=== PATIENT | female | born 1955 | race Caucasian/White ===

== ENCOUNTER 2016-05-07 07:24 | Inpatient (IN) | payer BC ==
[2016-04-05 11:34] VITALS: BMI 34.0
--- NOTE | 2016-04-05 12:12 | PAT Medication Instructions ---
Service Date Apr 05, 2016. Current Home Medication List Alendronate/Cholecalciferol (Fosamax+D 70MG/2800 Iu), 1 TABLET PO WK Ascorbic Acid (Vitamin C), 500 MG PO QAM Cholecalciferol (Vitamin D3), 1 CAP PO QAM Cyanocobalamin (Vitamin B12 500MCG), 1,000 MCG PO WEEKLY Diazepam (Valium), 5 MG PO HS Diltiazem Hcl Ext Rel (Tiazac), 240 MG PO QAM Folic Acid (Folvite), 1 MG PO QAM Methotrexate (Methotrexate), 2.5 MG PO WEEKLY PRN for 7.5 Pantoprazole (Protonix), 40 MG PO QAM Prednisone Tab (Prednisone), 10 MG PO QAM Rivaroxaban (Xarelto), 1 TAB PO QAM Tramadol/Acetaminophen (Ultracet), 1 TAB PO Q4-6H [Muscle Relaxant], 1 TAB PO HS Medication Instructions For Your Scheduled Surgery - Continue as directed: Alendronate/Cholecalciferol (Fosamax+D 70MG/2800 Iu), 1 TABLET PO WK Cyanocobalamin (Vitamin B12 500MCG), 1,000 MCG PO WEEKLY - Hold the following medications 2 weeks prior to surgery: Methotrexate (Methotrexate), 2.5 MG PO WEEKLY - Hold the following medications 3 days prior to surgery per Cardiology recommendations: Rivaroxaban (Xarelto), 1 TAB PO QAM - Hold the following medications the morning of surgery: Ascorbic Acid (Vitamin C), 500 MG PO QAM Cholecalciferol (Vitamin D3), 1 CAP PO QAM Folic Acid (Folvite), 1 MG PO QAM - Take the following medications the morning of surgery with a sip of water OTHERWISE NOTHING TO EAT OR DRINK AFTER MIDNIGHT: Pantoprazole (Protonix), 40 MG PO QAM Prednisone Tab (Prednisone), 10 MG PO QAM Diltiazem Hcl Ext Rel (Tiazac), 240 MG PO QAM Tramadol/Acetaminophen (Ultracet), 1 TAB PO Q4-6H (may take if needed up to 4 hours prior to surgery) - Take the following medications as scheduled the night before surgery: Diazepam (Valium), 5 MG PO HS [Muscle Relaxant], 1 TAB PO HS Tramadol/Acetaminophen (Ultracet), 1 TAB PO Q4-6H If you have any questions please call us at [phone] or [phone] or [phone]
--- NOTE | 2016-04-05 12:45 | DIAGNOSTIC IMAGING REPORT ---
CHEST 2 VIEWS ROUTINE CLINICAL HISTORY: pat preoperative evaluation COMPARISON STUDY: No previous studies for comparison. FINDINGS: The bones soft tissues and hemidiaphragms are normal. The cardiomediastinal silhouette is normal. The lungs are clear. The pulmonary vasculature is normal. IMPRESSION: Negative chest. Electronically signed by: Sridhar Kiser M.D. 04/05/2016 12:43 PM Dictated Date/Time: 04/05/2016 12:42 PM
[2016-04-05 12:56] LABS: URINE APPEARANCE CLEAR (CLEAR); URINE BILIRUBIN NEG (NEG); URINE COLOR YELLOW; URINE NITRITE NEG (NEG); URINE PH 5.5 (4.5-7.5); URINE SPECIFIC GRAVITY 1.013 (1.000-1.030); UROBILINOGEN NEG (NEG); ZZUR CULT IF INDIC CLEAN CATCH NO
[2016-04-05 13:01] LABS: INR 1.5 (0.9-1.1); PARTIAL THROMBOPLASTIN RATIO 1.6; PROTHROMBIN TIME (PATIENT) 16.8 SECONDS (9.0-12.0)
[2016-04-05 13:10] LABS: BUN/CREATININE RATIO 23.2 (10-20); CALCIUM 8.5 mg/dl (8.5-10.1); CREATININE 0.63 mg/dl (0.60-1.20); POTASSIUM 3.8 mmol/L (3.5-5.1)
[2016-04-05 13:13] LABS: MANUAL MICROSCOPIC REQUIRED? NO; REVIEW REQ? NO
--- NOTE | 2016-05-06 14:53 | HISTORY & PHYSICAL EXAMINATION ---
DATE OF ADMISSION: 05/07/2016 CHIEF COMPLAINT: Left knee pain. HISTORY OF PRESENT ILLNESS: Kary is a 60-year-old female with a multiple-year history of pain in her left knee. The patient states over the last 6 weeks has been worse. She rates her pain a 10/10. She has pain with her daily activities. She has limited standing and walking tolerance. Pain is worse with weightbearing. The patient has been ambulating with a cane. She takes Tylenol and tramadol without relief. She is on chronic prednisone. She has failed conservative treatment and is scheduled for left knee replacement. PAST MEDICAL HISTORY: Hypercholesterolemia, rheumatoid arthritis, atrial fibrillation, obesity. She denies heart disease, diabetes or DVT. PAST SURGICAL HISTORY: Right total knee, hysterectomy and gastric bypass surgery. SOCIAL HISTORY: The patient denies alcohol or tobacco use. She lives in a 2-story home. She is and is doing deskwork. FAMILY HISTORY: Negative for DVT. MEDICATIONS: Vitamin B12 1000 mcg daily, vitamin D 2000 units, diltiazem ER 240 mg, Xarelto 10 mg, methotrexate 2.5 mg, prednisone 10 mg, diazepam 5 mg, alendronate 70 mg, folic acid 1 mg. ALLERGIES: BACTRIM. REVIEW OF SYSTEMS: See HPI. Ten other systems reviewed, all negative. PHYSICAL EXAMINATION: VITAL SIGNS: Height 5 foot 7, weight 217 pounds, BMI 34. GENERAL: This is a well-developed, well-nourished female who is alert and oriented x3. Mood and affect are appropriate. HEAD, EYES, EARS, NOSE, AND THROAT: Normocephalic, atraumatic. Mucous membranes are moist and intact. NECK: Supple without lymphadenopathy. HEART: Regular rate and rhythm without murmurs, rubs or gallops. LUNGS: Clear to auscultation without wheezes or rhonchi. ABDOMEN: Soft and nontender. Bowel sounds are equal and active. EXTREMITIES: No ecchymosis, redness or warmth. Thigh and calf are soft and nontender. She has neutral alignment. Range of motion is from 0-100 degrees with +1 medial laxity. She is neurovascularly intact with +5/5 strength. X-RAY EXAMINATION: AP and lateral views show joint space narrowing and osteophyte formation. IMPRESSION: Degenerative joint disease left knee. PLAN: The patient will be admitted for a left total knee arthroplasty. She is on chronic Xarelto for Afib and will resume the postoperatively. A And P Technician is Dr. Brown in [facility] and she will be doing [facility] for physical therapy.
[~2016-05-07] VITALS: Ht 170.2 cm; Wt 98.9 kg
[2016-05-07] VITALS (8 sets, daily range): BP systolic 119–196; BP diastolic 68–98; PULSE 45–60; TEMP 36.4–36.6; O2SAT 95–100; Ht 170.2 cm; Wt 98.9 kg
[2016-05-07] MEDS: TRANEXAMIC ACID INJ 1,000 MG in SODIUM CHLORIDE 0.9% 100ML 100 ML IV SCH ×2 (06:30→09:59)
[~2016-05-07 07:24] MED LIST: ACETAMINOPHEN 500 MG TAB PO SCH; ASCO1CAP3 PO; BUPIVACAINE 0.25% 30 ML VIAL ONE; BUPIVACAINE 0.5 % 5 MG/1 ML PF 10ML VIAL ONE; CEFAZOLIN 2000 MG/60 ML D5W 60 ML IV SCH; CHOL2000 PO; CYAN500T13 PO; DEXAMETHASONE 4 MG TAB PO SCH; DIAZ-165 PO; DILT-115 PO; FAMOTIDINE 20 MG TAB PO SCH; FOLI1TAB7 PO; FSMD/70 PO; GABAPENTIN 300 MG CAP PO SCH; HYDROCORTISONE IV 100 MG in SYRINGE 0 ML IV SCH; LACTATED RINGER'S 1000ML 1,000 ML IV SCH; LACTATED RINGER'S 1000ML 500 ML IV ONE; LACTATED RINGER'S 1000ML IV SCH; METH2.5T PO; METOCLOPRAMIDE HCL 10 MG TAB PO SCH; MUSCLE RELAXANT PO; OXYCODONE HCL 10 MG TABCR (OXYCONTIN) PO SCH; PANT40TA PO; POLYMYXIN B SULFATE 100,000 UNITS in NSS 100ML IR SCH; PRED10TA PO; ROPIVACAINE 5MG/ML 30 ML 150 MG, BUPIVACAINE/EPINEPHR 0.5% MPF 30 ML, KETOROLAC TROMETH... INFIL SCH; TRAMTAB5 PO; TRANEXAMIC ACID INJ 1,000 MG in SODIUM CHLORIDE 0.9% 100ML 100 ML IV SCH; VANCOMYCIN INJ 400 MG in NSS 100ML IR SCH; XRL10 PO
[2016-05-07] MEDS ORDERED: ONDANSETRON INJ 2 MG/ML 2 ML VIAL IV PRN ×2 (07:45→11:45)
[2016-05-07] MEDS ORDERED: EpHEDrine SULFATE INJ 50 MG/ML AMP IV PRN (07:45)
[2016-05-07] MEDS ORDERED: ATROPINE SULFATE 0.1 MG/ML 5ML SYR IV PRN (07:45)
[2016-05-07] MEDS ORDERED: PROPOFOL IV EMULSION 10 MG/ML 20 ML VIAL IV ONE ×3 (07:57→11:11)
[2016-05-07] MEDS ORDERED: FENTANYL CITRATE INJ 50 MCG/1 ML 2 ML VIAL ONE (07:58)
[2016-05-07] MEDS ORDERED: MIDAZOLAM HCL 1 MG/ML 2ML VIAL ONE (07:58)
--- NOTE | 2016-05-07 08:42 | History & Physical Bridge Note ---
H&P Re-Evaluation Bridge Note: I have examined the patient, reviewed the History & Physical and in the interval since the performance of the History & Physical I have noted the following changes of clinical significance: No changes noted
[2016-05-07] MEDS ORDERED: BUPIVACAINE/EPINEPHRINE 0.25% 1:200,000 30 ML VIAL ONE (09:24)
[2016-05-07] MEDS ORDERED: ORTHO JOINT ANESTHETIC ONE (09:24)
[2016-05-07] MEDS ORDERED: BACITRACIN 50000 UNIT VIAL ONE (09:25)
[2016-05-07] MEDS ORDERED: POVIDONE-IODINE OP SOLN 30 ML BTL ONE (09:25)
[2016-05-07 09:52] LABS: INR 1.1 (0.9-1.1); PARTIAL THROMBOPLASTIN RATIO 1.2
--- NOTE | 2016-05-07 11:32 | [facility] Post Operative Brief Note ---
Immediate Operative Summary Operative Date May 07, 2016. Pre-Operative Diagnosis Left Knee Degenerative Joint Disease Post-Operative Diagnosis Left Knee Degenerative Joint Disease Procedure(s) Performed Left Total Knee Arthroplasty Surgeon Dr. Mahin Lewis Yarn Mercerizer Operator Surgeon(s) Teresa Cee PA-C Estimated Blood Loss 75mL Findings SEVEREB DISEASE POOR TISSUE Specimens Specimen A. Left knee bone and tissue Complication(s) None Disposition Recovery Room / PACU
[2016-05-07] MEDS ORDERED: SOD PHOSPHATE/SOD BIPHOSPHATE ENEMA 132 ML BTL PR PRN (11:45)
[2016-05-07] MEDS ORDERED: TRAMADOL HCL 50 MG TAB PO PRN (11:45)
[2016-05-07] MEDS ORDERED: METOCLOPRAMIDE HCL INJ 5 MG/ML 2 ML VIAL IV PRN (11:45)
[2016-05-07] MEDS ORDERED: ZOLPIDEM TARTRATE 5 MG TAB PO PRN (11:45)
[2016-05-07] MEDS ORDERED: MoRPHine SULFATE 2 MG/ML CARP IV PRN (11:45)
[2016-05-07] MEDS ORDERED: BISACODYL 10 MG SUPP PR PRN (11:45)
[2016-05-07] MEDS ORDERED: DiphenhydrAMINE HCL 50 MG/ML VIAL IV PRN (11:45)
[2016-05-07] MEDS ORDERED: ALUMINUM/MAGNESIUM/SIMETH (MAALOX MAX) 30 ML UDC PO PRN (11:45)
[2016-05-07] MEDS ORDERED: MAGNESIUM HYDROXIDE SUSP 30 ML UDC PO PRN (11:45)
--- NOTE | 2016-05-07 12:24 | DIAGNOSTIC IMAGING REPORT ---
LEFT KNEE 1 OR 2 VIEWS ROUTINE CLINICAL HISTORY: Degenerative arthritis COMPARISON: None. DISCUSSION: There are postsurgical changes of a total left knee arthroplasty and patellar resurfacing. The femoral and tibial components appear well seated. Overlying surgical drains are evident. There is air within the soft tissues consistent with history of recent surgery. IMPRESSION: Postsurgical changes of a total left knee arthroplasty. Electronically signed by: Charly Polo M.D. 05/07/2016 12:23 PM Dictated Date/Time: 05/07/2016 12:22 PM
--- NOTE | 2016-05-07 12:56 | [facility] Post Operative Brief Note ---
Immediate Operative Summary Operative Date May 07, 2016. Pre-Operative Diagnosis Left Knee Degenerative Joint Disease Post-Operative Diagnosis Left Knee Degenerative Joint Disease Procedure(s) Performed Left Total Knee Arthroplasty Surgeon Dr. Mahin Lewis Guest Service Aide Surgeon(s) Teresa Cee PA-C Estimated Blood Loss 75mL Specimens Specimen A. Left knee bone and tissue Complication(s) None Disposition Recovery Room / PACU
--- NOTE | 2016-05-07 13:03 | Anesthesiology Progress Note ---
Anesthesia Post Op Note Date & Time May 07, 2016 at 13:04 Vital Signs Pain Intensity: 0 Vital Signs Past 12 Hours Date Time Temp Pulse Resp B/P Pulse Ox O2 Delivery O2 Flow Rate FiO2 05/07/16 13:00 51 16 129/62 99 Nasal Cannula 2 05/07/16 12:50 36.9 55 15 129/62 100 Nasal Cannula 2 05/07/16 12:40 48 13 117/58 99 Nasal Cannula 2 05/07/16 12:30 55 14 120/58 98 Nasal Cannula 2 05/07/16 12:20 51 12 121/61 100 Mask 10 05/07/16 12:10 52 10 119/56 100 Mask 10 05/07/16 12:04 36.3 58 14 116/52 96 Mask 10 05/07/16 07:50 36.4 54 16 196/98 98 Room Air Notes Mental Status: alert / awake / arousable, participated in evaluation Pt Amnestic to Procedure: Yes Nausea / Vomiting: adequately controlled Pain: adequately controlled Airway Patency, RR, SpO2: stable & adequate BP & HR: stable & adequate Hydration State: stable & adequate Neuraxial Anesthesia: was administered, sensory block is resolving Anesthetic Complications: no major complications apparent
--- NOTE | 2016-05-07 15:51 | OPERATIVE REPORT ---
DATE OF OPERATION: 05/07/2016 PREOPERATIVE DIAGNOSIS: Degenerative arthritis, left knee. POSTOPERATIVE DIAGNOSIS: Same. PROCEDURE: Left total knee patient matched implant. SURGEON: Mahin Lewis MD ELECTRODYNAMICIST: ONEIDA Prasad ANESTHESIA: Spinal. BLOOD LOSS: 75 mL. REPLACEMENT FLUIDS: 1500 mL crystalloid. DRAINS: Hemovac x2. CULTURES: None. COMPLICATIONS: None. COMPONENTS USED: [employer] [place] Knee System: Femur size 5, tibia size 5 x 9, and patella size 32. NOTE: ONEIDA Prasad was present and assisted throughout due to the complicated nature of this case. She helped with preparation and set up. She first assisted throughout and personally closed the capsule, subcutaneous and skin layers and applied the postoperative dressing. DESCRIPTION OF PROCEDURE: Following satisfactory spinal, the patient was supine. A tourniquet was placed, but not inflated. The lower extremity was prepared with ChloraPrep and draped sterilely. Following a surgical time-out, a midline incision was made with a median parapatellar arthrotomy. The patient had poor quality soft tissue as having previously had a gastric bypass and also steroid dependent and methotrexate dependent rheumatoid. The anterior cruciate was extremely deteriorated. The posterior cruciate ligament was excised. The patient matched femoral block was applied. Femoral distal rotation and resection were set and completed. The 4-in-1 block was used to finish preparation of the femur. The patient matched tibial block was applied. Tibial resection was completed. The patella was freehand cut. Soft tissue balancing was completed. The patella tracked laterally and a lateral release was required. This did improve patellar tracking. The trial components were removed. The capsule was prepared with the orthopedic cocktail and after irrigation, the components were cemented using Simplex G cement. A Betadine soak was performed. When the cement had hardened, the Betadine was irrigated. Two drains were placed. The arthrotomy was closed with 0 V-Loc and reinforced with #1 Vicryl throughout, subcutaneous tissues with 2-0 Vicryl and the skin with a running subcuticular stitch of 3-0 V-Loc. Dermabond and a dry dressing were applied. The patient was returned to her bed in stable condition. I attest to the content of the Intraoperative Record and any orders documented therein. Any exceptio ns are noted below.
[2016-05-07] MEDS: ACETAMINOPHEN 500 MG TAB PO SCH ×2 (16:11→23:25)
[2016-05-07] MEDS: D5W AND 1/2NSS + 20MEQ KCL 1,000 ML IV SCH (16:11)
[2016-05-07] MEDS: OXYCODONE HCL IR 5 MG TAB (IMMEDIATE RELEASE) PO PRN ×2 (17:14→23:25)
[2016-05-07] MEDS: CEFAZOLIN IV 2,000 MG in DEXTROSE 5% 50ML 50 ML IV SCH (17:46)
[2016-05-07] MEDS: SENNA 8.6 MG TAB PO SCH (20:46)
[2016-05-07] MEDS: DIAZEPAM 5MG TAB PO SCH (20:46)
[2016-05-08] VITALS (7 sets, daily range): BP systolic 122–143; BP diastolic 69–84; PULSE 49–57; TEMP 36.7–36.8; O2SAT 96–98
[2016-05-08] MEDS: CEFAZOLIN IV 2,000 MG in DEXTROSE 5% 50ML 50 ML IV SCH (01:37)
[2016-05-08] MEDS: D5W AND 1/2NSS + 20MEQ KCL 1,000 ML IV SCH ×2 (01:37→12:21)
[2016-05-08] MEDS: OXYCODONE HCL IR 5 MG TAB (IMMEDIATE RELEASE) PO PRN ×5 (04:20→21:18)
[2016-05-08 05:50] LABS: HEMATOCRIT 29.7 % (37-47); MEAN CELL VOLUME 83.2 fL (80-100); MEAN CORPUSCULAR HEMOGLOBIN 27.5 pg (25-34); MEAN PLATELET VOLUME 9.7 fL (7.4-10.4); PLATELET COUNT 198 K/uL (130-400); RED BLOOD COUNT 3.57 M/uL (4.2-5.4); WHITE BLOOD COUNT 11.52 K/uL (4.8-10.8)
[2016-05-08 06:23] LABS: BUN/CREATININE RATIO 23.2 (10-20); CREATININE 0.47 mg/dl (0.60-1.20); POTASSIUM 4.2 mmol/L (3.5-5.1)
[2016-05-08] MEDS: ACETAMINOPHEN 500 MG TAB PO SCH ×3 (08:03→23:58)
--- NOTE | 2016-05-08 08:13 | Orthopedic Progress Note ---
Orthopedic Progress Note Date of Service May 08, 2016. Subjective Post OP Day: 1 Reports: feeling well, Denies: SOB, calf pain, chest pain, light headedness, nausea / vomiting Objective calves soft nontender, N/V intact, dressing C/D/I, A&O x3, toes mobile, hemovac drainage (175/25CC PER SHIFT) Date Time Temp Pulse Resp B/P Pulse Ox O2 Delivery O2 Flow Rate FiO2 05/08/16 08:08 98 Room Air 05/08/16 08:07 36.8 53 17 143/76 98 Room Air 05/08/16 04:05 36.7 57 16 122/71 97 Room Air 05/07/16 23:30 Room Air 05/07/16 22:56 36.6 51 16 158/80 96 Room Air 05/07/16 21:52 Nasal Cannula 2.0 05/07/16 19:30 36.4 47 16 156/70 95 Room Air 05/07/16 16:20 36.4 53 18 134/68 100 Nasal Cannula 2.0 05/07/16 15:20 45 18 148/76 100 Nasal Cannula 2.0 05/07/16 14:25 36.4 60 16 130/78 100 Nasal Cannula 2.0 05/07/16 13:56 56 16 125/85 100 Nasal Cannula 2.0 05/07/16 13:30 Nasal Cannula 2.0 05/07/16 13:26 100 Nasal Cannula 2.0 05/07/16 13:19 36.6 50 16 119/74 100 Nasal Cannula 2.0 05/07/16 13:00 51 16 129/62 99 Nasal Cannula 2 05/07/16 12:50 36.9 55 15 129/62 100 Nasal Cannula 2 05/07/16 12:40 48 13 117/58 99 Nasal Cannula 2 05/07/16 12:30 55 14 120/58 98 Nasal Cannula 2 05/07/16 12:20 51 12 121/61 100 Mask 10 05/07/16 12:10 52 10 119/56 100 Mask 10 05/07/16 12:04 36.3 58 14 116/52 96 Mask 10 Laboratory Results 24 Hours: Test 05/07/16 09:30 05/08/16 05:30 Prothromb Time International Ratio 1.1 Prothrombin Time 12.0 SECONDS Hematocrit 29.7 % Hemoglobin 9.8 g/dL Assessment & Plan Assessment: POD#1 SP LEFT TKA Inhouse Planning Pain Management: Celebrex, PO Tylenol, Oxy IR DVT Prophylaxis: TEDs, SCDs, Xarelto Discharge Planning Discharge Planning: home with home health ([facility] FRIDAY)
[2016-05-08] MEDS: MULTIVITAMIN TAB PO SCH (08:49)
[2016-05-08] MEDS: CHOLECALCIFEROL 1000 INTER.UNIT TAB PO SCH (08:50)
[2016-05-08] MEDS: PANTOprazole SOD 40 MG TAB PO SCH (08:50)
[2016-05-08] MEDS: ASCORBIC ACID 500 MG TAB PO SCH (08:50)
[2016-05-08] MEDS: DILTIAZEM HCL 120 MG EXT REL CAP PO SCH (09:43)
--- NOTE | 2016-05-08 09:57 | Anesthesiology Progress Note ---
Anesthesia Post Op Note Date & Time May 08, 2016 at 09:56 Vital Signs Vital Signs Past 12 Hours Date Time Temp Pulse Resp B/P Pulse Ox O2 Delivery O2 Flow Rate FiO2 05/08/16 09:41 57 134/79 05/08/16 08:08 98 Room Air 05/08/16 08:07 36.8 53 17 143/76 98 Room Air 05/08/16 04:05 36.7 57 16 122/71 97 Room Air 05/07/16 23:30 Room Air 05/07/16 22:56 36.6 51 16 158/80 96 Room Air Notes Mental Status: alert / awake / arousable, participated in evaluation Pt Amnestic to Procedure: Yes Nausea / Vomiting: adequately controlled Pain: adequately controlled Airway Patency, RR, SpO2: stable & adequate BP & HR: stable & adequate Hydration State: stable & adequate Neuraxial Anesthesia: was administered, sensory block resolved Anesthetic Complications: no major complications apparent
[2016-05-08] MEDS: DIAZEPAM 5MG TAB PO SCH (21:10)
[2016-05-08] MEDS: SENNA 8.6 MG TAB PO SCH (21:12)
[2016-05-09] MEDS: OXYCODONE HCL IR 5 MG TAB (IMMEDIATE RELEASE) PO PRN ×2 (05:36→10:23)
[2016-05-09 07:23] VITALS: BP 149/79; PULSE 55; TEMP 36.9; O2SAT 97
--- NOTE | 2016-05-09 07:41 | Discharge Instructions ---
Discharge Instructions Date of Service May 09, 2016. Admission Reason for Admission: Left Knee Degenerative Arthritis Discharge Discharge Diagnosis / Problem: sp left total knee Discharge Goals Goal(s): Decrease discomfort, Improve function, Increase independence Activity Recommendations Activity Limitations: per Instructions/Follow-up section . Instructions / Follow-Up Instructions / Follow-Up ACTIVITY RECOMMENDATIONS: SELF CARE INSTRUCTIONS AFTER TOTAL KNEE REPLACEMENT A. You may need to continue a physical therapy program after discharge from the hospital. There are several options available to you. Your doctor will assist you in selecting the best one for you. 1. An out-patient facility 2 to 3 times a week for therapy or home therapy. 2. Continue working on all exercises taught to you in the hospital. Your goals should be to increase bending of your knee to 90 degrees and beyond and to fully straighten your knee. B. You may progress at your own pace from walking with a walker or crutches to a cane; then to no assistive devices. C. Make walking a part of your daily routine. Be up as much as comfortable with rest periods throughout the day. Rest with leg elevation is very important. Use the ice wrap frequently for the first 3-4 weeks. D. There are no restrictions on activities. You may ride in a car, shop, participate in lard maker and all social activities. E. Wear the long elastic stockings (SHELLEY hose) 20 hours a day for 2 weeks after surgery. They can be removed several times a day for laundering and for a bath. F. You may shower, no tub baths until cleared by your doctor. SPECIAL CARE INSTRUCTIONS: VERY IMPORTANT TO READ AND REVIEW A. There are a few signs you need to watch for after you are home. Call [facility] if you notice any of the followin. Increased severe knee pain. Some pain is expected especially when you exercise. 2. Increased swelling in your leg or knee; pain or swelling of the calf muscle in either lower leg. 3. Any fluid drainage from the incision. 4. Shortness of breath or chest pain. B. Please call [facility] at if you have any concerns or questions about your operation or recovery. The doctor or his nurse will return your call promptly. C. You must take antibiotics before dental work, bladder, bowel or other surgery. Your doctor will provide you with a permanent care to carry describing this precaution. IMPORTANT: * HIGH RISK PATIENTS MAY BE PRESCRIBED A STRONGER BLOOD THINNER. THIS WILL BE PROVIDED AT DISCHARGE. RESUME XARELTO! * CALL IF INCREASED PAIN, REDNESS, DRAINAGE OR FEVER GREATER THAT 101. * WEAR SHELLEY HOSE 20 HOURS PER DAY FOR 2 WEEKS. DERMABOND Prineo- This is a mesh tape dressing that is covered with glue. It should remain in place until the incision is properly healed, usually 10-14 days. This dressing is designed to naturally slough off. You may trim the excess mesh tape as it peels off. Incision may be briefly wet in a shower. Dry immediately by blotting with a clean, dry towel. Do not bath or swim until instructed by your doctor. Do not scratch, rub, or pick at the dressing. Do not apply any topical ointments or lotions until dressing is completely removed and/or instructed by your doctor. There may be a small piece of suture material at one end of your incision. Do not pull or trim this. If it is bothersome or catching on clothing, you may cover it with a band-aid. FOLLOW UP VISIT: If appointment is not already scheduled: Please call [facility] to make a follow-up appointment for 2 weeks after your surgery at . Current Hospital Diet Patient's current hospital diet: Regular Diet Discharge Diet Recommended Diet: Regular Diet Procedures Procedures Performed: Left Total Knee Arthroplasty Pending Studies Studies pending at discharge: no Medical Emergencies . Who to Call and When: Medical Emergencies: If at any time you feel your situation is an emergency, please call 911 immediately. . Non-Emergent Contact Non-Emergency issues call your: Surgeon . "Provider Documentation" section prepared by Teresa Cee. VTE Core Measure Inpt VTE Proph given/why not?: Donna Reese, SCD's [place] Drug Monitoring Program Search Results: patient reviewed within database, no issues identified
[2016-05-09] MEDS: ACETAMINOPHEN 500 MG TAB PO SCH (07:45)
[2016-05-09] MEDS ORDERED: ACET-1138 PO (07:53)
[2016-05-09] MEDS ORDERED: SNK PO (07:53)
[2016-05-09] MEDS ORDERED: RXC5 PO (07:53)
[2016-05-09] MEDS ORDERED: ONDA8TAB6 PO (07:53)
--- NOTE | 2016-05-09 07:59 | DISCHARGE SUMMARY ---
DATE OF DISCHARGE: 05/09/2016. DISCHARGE DIAGNOSIS: Degenerative joint disease left knee. SECONDARY DIAGNOSIS: None. CONSULTS: None. COMPLICATIONS: None. PROCEDURE: The patient underwent a left total knee arthroplasty with Dr. Lewis on 05/07/2016. BRIEF HISTORY: Please see previously dictated history and physical. HOSPITAL SUMMARY: The patient was admitted on the above day for the above procedure. Procedure went without complication. Postop day 1, the patient was feeling well without complaints. She denied chest pain or shortness of breath. Vital signs were stable. She was afebrile. Dressing was clean, dry and intact. She was neurovascularly intact. Calves were soft and nontender. Hemovac drained 175 and 25 mL. Hemoglobin was 9.8. The patient began physical therapy per protocol. Postop day 2, the patient was improving. She denied chest pain or shortness of breath. Vital signs were stable. She was afebrile. Incision was clean, dry and intact. She was neurovascularly intact. Calves were soft and nontender. The patient continued to progress with physical therapy. She was discharged to home later that day in stable condition. For further review please see the chart. Lab, x-ray data and discharge instructions as per chart.
[2016-05-09 08:36] VITALS: PULSE 62
[2016-05-09] MEDS: PANTOprazole SOD 40 MG TAB PO SCH (08:39)
[2016-05-09] MEDS: MULTIVITAMIN TAB PO SCH (08:39)
[2016-05-09] MEDS: DILTIAZEM HCL 120 MG EXT REL CAP PO SCH (08:40)
[2016-05-09] MEDS ORDERED: RIVAROXABAN 10 MG TAB PO SCH (09:00)
[2016-05-09] MEDS: CHOLECALCIFEROL 1000 INTER.UNIT TAB PO SCH (09:01)
[2016-05-09] MEDS: ASCORBIC ACID 500 MG TAB PO SCH (09:01)
[2016-05-09 10:53] VITALS: BP 149/79; PULSE 62; TEMP 36.9; O2SAT 97
== END 2016-05-09 12:47 | disposition home health service (06) | DRG 470 ==
LOC: ENRESERVDT → ENRESERVTM → C.ACU 07:24 → C.3E 11:38 → EDBEDREQ 12:24
PROVIDERS: ADMIT Orthopaedic Surgery; ATTEND Orthopaedic Surgery
PROC: 0SRD0J9 Replacement of Left Knee Joint with Synthetic Substitute, Cemented, Open Approach (ICD-10-PCS; principal; 2016-05-07 09:30)
DX: M17.12 Unilateral primary osteoarthritis, left knee (principal); M06.9 Rheumatoid arthritis, unspecified; I48.91 Unspecified atrial fibrillation; E66.9 Obesity, unspecified; E78.00 Pure hypercholesterolemia, unspecified; Z96.651 Presence of right artificial knee joint; G47.33 Obstructive sleep apnea (adult) (pediatric); R01.1 Cardiac murmur, unspecified; M54.5 Low back pain; Z79.83 Long term (current) use of bisphosphonates; Z79.899 Other long term (current) drug therapy; Z98.84 Bariatric surgery status; Z79.01 Long term (current) use of anticoagulants; Z79.891 Long term (current) use of opiate analgesic; Z79.52 Long term (current) use of systemic steroids; Z68.34 Body mass index [BMI] 34.0-34.9, adult